=== PATIENT | male | born 1960 | race Caucasian/White ===

== ENCOUNTER 2018-03-21 09:49 | Day surgery (SDC) | payer OTHER ==
--- NOTE | 2018-03-18 16:28 | EKG ---
Test Date: 2018-03-18 Test Time: 10:57:27 Manager Enrollment: ROBI MEASUREMENT RESULTS: Intervals: Rate: 53 IA: 164 QRSD: 102 QT: 418 QTc: 392 [place]: P: 65 IA: 164 QRS: 25 T: 39 INTERPRETIVE STATEMENTS: Sinus bradycardia Otherwise normal ECG Compared to ECG 12/20/2003 09:31:00 Sinus rhythm no longer present Electronically Signed On 03-18-18 16:27:51 CDT by Bakari Ni
[2018-03-21] MEDS ORDERED: Ringers Lactate 1,000 ML IV ONE ×2 (10:08→12:22)
[2018-03-21] MEDS ORDERED: OXYMETAZOLINE HCL 0.05% 30ML NAS ONE ×2 (10:08→12:45)
[2018-03-21] MEDS ORDERED: NA CHLORIDE 0.9% 500 ML ONE (10:18)
[2018-03-21] MEDS ORDERED: BACITRACIN OINTMENT 15 GM TUBE TOP ONE (10:19)
[2018-03-21] MEDS: OXYMETAZOLINE HCL 0.05% 30ML NAS ONE ×3 (10:30→10:40)
[2018-03-21] MEDS ORDERED: LIDOCAINE 2% MPF 5 ML VIAL ONE (10:43)
[2018-03-21] MEDS ORDERED: DEXAMETHASONE 10 MG/ML VIAL ONE (10:43)
[2018-03-21] MEDS ORDERED: ROCURONIUM 50 MG/5 ML VIAL IV ONE (10:43)
[2018-03-21] MEDS ORDERED: PROPOFOL 200 MG/20 ML VIAL IV ONE (10:43)
[2018-03-21] MEDS ORDERED: FENTANYL CITR 250 MCG/5 ML ONE (10:44)
[2018-03-21] MEDS ORDERED: MIDAZOLAM HCL 2 MG/2 ML INJ ONE (10:44)
[2018-03-21] MEDS ORDERED: ONDANSETRON 4 MG/2 ML VIAL ONE (10:44)
[2018-03-21] MEDS: LIDOCAINE 1% W/EPI 1:100,000 MDV 50 ML VIAL ONE ×2 (11:06→12:00)
[2018-03-21] MEDS ORDERED: GLYCOPYRROLATE 0.2 MG/ML SYR ONE (11:56)
--- NOTE | 2018-03-21 13:50 | P.BOP ---
Preoperative diagnosis: CRS, septal deviation Postoperative diagnosis: same Primary procedure: B fronto-ethmoid Secondary procedure: B max, septoplasty Estimated blood loss: 50ml Specimen: sinonasal trimmings Anesthesia: General Complications: None Implants: Propel to B ethmoid, L gelfoam nasal packing Fluids & blood products: crystalloid 1400ml Transferred to: Recovery Room Condition: Good
[2018-03-21] MEDS: MORPHINE 10 MG/ML VIAL ONE ×2 (14:20→14:25)
[2018-03-21] MEDS ORDERED: TRAMADOL HCL 50 MG TAB ONE (14:49)
--- NOTE | 2018-03-23 02:32 | OP ---
Surgeon: Daija Salvador MD Postoperative Diagnoses: Chronic rhinosinusitis, septal deviation with nasal obstruction and obstruc tive sleep apnea. Postoperative Diagnoses: Chronic rhinosinusitis, septal deviation with nasal obstruction and obstruc tive sleep apnea. Indications For Procedure: Mr. Cliff Gong presented to the [facility] with complaints of chronic rh inosinusitis and longstanding nasal obstruction worse on the left side. He was treated with maximal medical therapy including steroids and antibiotics and underwent a post treatment CT scan, which demo nstrated mild maxillary mucosal thickening, partial ethmoid opacification and narrowing of the fronta l recesses. In addition, he was noted to have a left septal deviation with a prominent bony spur obs tructing portion of the left side of the nose. The risks, benefits, alternatives to sinus surgery an d septoplasty were discussed with the patient who expressed understanding and agreed to proceed. Description Of Procedure: The patient was brought to the operating room. He was placed under anesth esia via oral endotracheal tube. The head of bed was turned 90 degrees. The patient's nasal hairs w ere trimmed and the nasal cavity was packed with Afrin-soaked pledgets. After time for effect, these pledgets were removed and a 0-degree endoscope was used to perform a nasal endoscopy. The right mid dle turbinate was medialized using a [place] and the uncinate process was palpated using maxillary seek er. The uncinate process was then removed using a 90-degree backbiter and 90-degree [place]. A 30 -degree endoscope was then used for better visualization and the maxillary antrostomy was enlarged us ing the microdebrider 90-degree and 90-degree [place] until an adequate opening was created. A sim ilar procedure was performed on the left side with adequate opening into the left maxillary sinus. T he 30-degree endoscope was then reemployed for initial dissection of the ethmoid cavity. Using 0-deg ree endoscope, the right ethmoid bulla was carefully dissected using the curette and bony fragments w ere removed using the straight and 45-degree [place]. Careful dissection proceeded in anterior to posterior dissection until the posterior ethmoid cells were reached. The skull base was identified a nd carefully dissected in a posterior to anterior direction under 30-degree endoscope visualization. After dissection in the superior anterior portion, the frontal sinus was well visualized and using 7 0-degree scope and Giraffe instruments bony partitions around the frontal recess were removed. The f rontal recess was widely opened with a generous distance between the anterior and posterior table in the area of the frontal recess. The frontal sinus on the right side was very large and predominated frontal pneumatization. Afrin-soaked pledgets were applied to the sinus cavity and the scope was use d to perform a similar procedure on the left side. The left ethmoid air cells were dissected using a curette and bony partitions were removed using the 0, 45 and 90-degree [place]. Frontal ethmoid w as thoroughly dissected in the anterior to superior aspect. The frontal sinus/recess was very small, consistent with careful evaluation of the preoperative CT scan. Afrin-soaked pledgets were applied and attention was returned to the right side. After removal of pledgets, additional dissection was c arried out where undissected cells along the lamina were suspected. During dissection in this area, a very small portion of the lamina was violated with the opening approximately the 2 x 2 mm. This wa s confirmed by gentle pressure on the globe resulting in visualized movement of the orbital septum. The orbital septum was not violated and there was no evidence of orbital hematoma noted. Of note, in the right ethmoid cells, there was a small amount of polypoid tissue, which was removed during disse ction. After completion of the sinus portion of the procedure, the septoplasty portion of the surger y was started. Careful consideration of the patient's septal anatomy was considered. The cartilagin ous septum was not overly deviated and the primary problem was felt to be large septal spur. Therefo re, under headlight visualization, a sickle knife was used to make a horizontal incision along the ed ge of the spur and a caudal elevator was used to elevate the mucosa over the bony septum. The bony s eptal spur was then down fractured and removed. The edges were refined using a [place] rongeur and Omari jefferson to remove bony fragments. Decision was made to employ the endoscope for better visualization and under 0-degree endoscopic guidance, additional bony deviations were removed using the thru-cutti ng straight [place]. After adequate dissection and repair of the septal deviation, the mucosal fla ps were replaced in anatomic position, but no closure was necessary. The nasal cavity and sinus cavi ties were suctioned and a propel steroid eluting stent was placed under endoscopic guidance into the ethmoid sinuses to decrease inflammation and further polyp formation during the healing. A 4 x 2 cm piece of Gelfoam was placed within the left nasal cavity along the septal incision to aid in hemostas is and protection of this area during initial stages of healing. The patient was then returned to [place] re of anesthesia for awakening, extubation in the operating room, which proceeded without difficulty. Complications: None. Disposition: The patient will be discharged home later today in the care of his family with standard post sinus and nasal surgery precautions including at least t.i.d. saline irrigations and follow up with Dr. Salvador in 10-12 days. [email or web address]/[email or web address] Voice ID: [id number] Report ID: [id number]
== END 2018-03-21 15:30 | disposition home or self-care (01) ==
LOC: OR 09:49
PROVIDERS: ATTEND Otolaryngology
PROC: 09TU8ZZ Resection of Right Ethmoid Sinus, Via Natural or Artificial Opening Endoscopic (ICD-10-PCS; 2018-03-21)
PROC: 09JK8ZZ Inspection of Nasal Mucosa and Soft Tissue, Via Natural or Artificial Opening Endoscopic (ICD-10-PCS; 2018-03-21)
PROC: 09SM4ZZ Reposition Nasal Septum, Percutaneous Endoscopic Approach (ICD-10-PCS; principal; 2018-03-21 11:30)
PROC: 09TV8ZZ Resection of Left Ethmoid Sinus, Via Natural or Artificial Opening Endoscopic (ICD-10-PCS; 2018-03-21 11:30)
DX: J32.2 Chronic ethmoidal sinusitis (principal); J32.0 Chronic maxillary sinusitis; J34.2 Deviated nasal septum; G47.33 Obstructive sleep apnea (adult) (pediatric); J34.89 Other specified disorders of nose and nasal sinuses; E66.9 Obesity, unspecified; I10 Essential (primary) hypertension; Z82.49 Family history of ischemic heart disease and other diseases of the circulatory system
CPT/HCPCS: 88304; 88305; 93005; J1100; J2250; J2405